=== PATIENT | male | born 1985 | race Caucasian/White ===

== ENCOUNTER 2021-11-17 21:25 | Emergency (ER) | payer SELFPAY ==
[~2021-11-17] VITALS: Ht 172.7 cm; Wt 78.0 kg
[2021-11-17 22:43] VITALS: BP 135/80
--- NOTE | 2021-11-17 23:18 | NUR ---
SEEN ANS EXAMINED BY MARTÍNEZ
[2021-11-18] MEDS ORDERED: NAPR-54 PO (01:16)
[2021-11-18 01:30] VITALS: BP 135/80
--- NOTE | 2021-11-18 01:30 | NUR ---
Patient discharged with v/s stable. Written and verbal after care instructions given and explained BY DR. GARDNER. Patient verbalized understanding. Ambulatory with steady gait. All questions addressed prior to discharge. Advised to follow up with PMD.
== END 2021-11-18 01:35 | disposition home or self-care (01) ==
LOC: MED 21:25
DX: S92.402A Displaced unspecified fracture of left great toe, initial encounter for closed fracture (principal); Z79.899 Other long term (current) drug therapy; W22.8XXA Striking against or struck by other objects, initial encounter; Y93.89 Activity, other specified; Y92.89 Other specified places as the place of occurrence of the external cause; Y99.8 Other external cause status
CPT/HCPCS: 29515; 73630; 99283